=== PATIENT | male | born 1965 | race Caucasian/White ===

== ENCOUNTER 2019-03-08 11:11 | Emergency (ER) | payer BC, MEDICARE ==
[~2019-03-08] VITALS: Ht 177.8 cm; Wt 102.3 kg
[2019-03-08 11:33] VITALS: BP 173/119
[2019-03-08] MEDS ORDERED: CYCL-1 PO (12:20)
[2019-03-08] MEDS ORDERED: methylPREDNISolone sod succ 125mg/2ml vial IM ONE (12:20)
[2019-03-08] MEDS ORDERED: HYDR-4384 PO (12:20)
[2019-03-08] MEDS ORDERED: ketorolac trometh inj. 60 MG/2 ML VIAL IM ONE (12:20)
[2019-03-08] MEDS ORDERED: HYDROcodone/acetaminophen 5mg/325mg tablet PO ONE (12:20)
[2019-03-08] MEDS ORDERED: diazepam 5mg tablet PO ONE (12:20)
[2019-03-08] MEDS ORDERED: IBUP-1984 PO (12:20)
== END 2019-03-08 12:46 | disposition home or self-care (01) ==
LOC: ER 11:11
DX: M54.41 Lumbago with sciatica, right side (principal); Z98.890 Other specified postprocedural states
CPT/HCPCS: 96372; 99283; J1885; J2930

== ENCOUNTER 2020-06-26 16:43 | Emergency (ER) | payer MEDICARE ==
[~2020-06-26] VITALS: Ht 177.8 cm; Wt 104.5 kg
[~2020-06-26 16:43] MED LIST: CYCL-1 PO
[2020-06-26 17:16] VITALS: BP 150/106
[2020-06-26] MEDS ORDERED: morphine 4 MG/ML inj SYRINge IM ONE ×2 (18:30→19:00)
[2020-06-26] MEDS ORDERED: ondansetron 4mg rapidly disintigrating tab PO ONE (18:30)
[2020-06-26] MEDS ORDERED: ketorolac tromethamine 15mg/ml inj. IM ONE (18:45)
[2020-06-26 19:11] LABS: BASOPHILS % (AUTO) 0.8 % (0-1); EOSINOPHILS # (AUTO) 0.1 X10'3 (0-0.9); EOSINOPHILS % (AUTO) 2.1 % (0-6); HEMATOCRIT 46.6 % (42.0-52.0); HEMOGLOBIN 16.4 g/dl (14.0-17.9); LYMPHOCYTES # (AUTO) 1.4 X10'3 (1.1-4.8); LYMPHOCYTES % (AUTO) 25.5 % (21-51); MEAN CORPUSCULAR HEMOGLOBIN 33.2 PG (27.0-31.0); MEAN CORPUSCULAR HGB CONC 35.2 g/dL (33.0-36.5); MEAN CORPUSCULAR VOLUME 94.3 FL (78-98); MEAN PLATELET VOLUME 7.6 FL (7.4-10.4); MONOCYTES # (AUTO) 0.7 X10'3 (0-0.9); MONOCYTES % (AUTO) 12.2 % (2-12); NEUTROPHILS # (AUTO) 3.3 X10'3 (1.8-7.7); NEUTROPHILS % (AUTO) 59.4 % (42-75); PLATELET COUNT 218 X10'3 (140-440); RED BLOOD COUNT 4.94 X10'6 (4.70-6.10); WHITE BLOOD COUNT 5.6 X10'3 (4.5-11.0)
[2020-06-26 19:15] LABS: ALANINE AMINOTRANSFERASE 83 U/L (12-78); ALBUMIN 4.3 G/DL (3.4-5.0); ALBUMIN/GLOBULIN RATIO 1.2 (1.1-1.5); ALKALINE PHOSPHATASE 71 IU/L (46-116); ANION GAP 12 (8-16); ASPARTATE AMINO TRANSFERASE 42 U/L (10-37); BILIRUBIN,TOTAL 1.3 MG/DL (0.1-1.0); BLOOD UREA NITROGEN 7 MG/DL (7-18); C-REACTIVE PROTEIN 0.16 MG/DL (0.0-0.5); CALCIUM 8.8 MG/DL (8.5-10.1); CHLORIDE 103 MMOL/L (99-107); CREATININE 0.87 MG/DL (0.60-1.10); GLUCOSE 133 MG/DL (70-104); POTASSIUM 3.8 MMOL/L (3.5-5.1); SODIUM 143 MMOL/L (135-145); TOTAL CARBON DIOXIDE 28.3 MMOL/L (24-32); TOTAL PROTEIN 7.9 G/DL (6.4-8.2); eGFR > 90 ML/MIN
[2020-06-26] MEDS ORDERED: IBUP-1984 PO (20:16)
[2020-06-26] MEDS ORDERED: ORPH100T2 PO (20:16)
== END 2020-06-26 20:33 | disposition home or self-care (01) ==
LOC: ER 16:44
DX: G89.29 Other chronic pain (principal); M54.5 Low back pain; Z79.899 Other long term (current) drug therapy; Z98.890 Other specified postprocedural states
CPT/HCPCS: 36415; 72131; 80053; 85025; 85651; 86140; 96372; 99284; J1885; J2270